=== PATIENT | female | born 1985 | race African-American/Black ===

== ENCOUNTER 2018-01-06 08:28 | Emergency (ER) | payer OTHER ==
[2018-01-06] MEDS ORDERED: NAPROXEN 250 MG TABLET PO ×2 (09:07)
[2018-01-06 09:14] LABS: URINE HCG POC HCG POSITIVE (Negative)
[2018-01-06] MEDS: IV NORMAL SALINE 1000ML BAG 1,000 ML IV ×2 (09:17)
[2018-01-06 09:24] LABS: BILIRUBIN,URINE NEGATIVE (NEG); CLARITY,URINE CLOUDY; COLOR,URINE YELLOW; GLUCOSE,URINE NEGATIVE (NEG); NITRITE,URINE NEGATIVE (NEG); PROTEIN,URINE NEGATIVE (NEG-TRACE)
[2018-01-06 09:26] LABS: ADD MAN DIFF? NO
[2018-01-06] MEDS: ACETAMINOPHEN 325 MG TABLET. PO ×2 (09:30)
[2018-01-06] MEDS: 0.9 % SODIUM CHLORIDE 10 ML DISP.SYRIN. IV ×2 (09:31)
[2018-01-06 09:35] LABS: BASO % 0 % (0-3); EOS % 1 % (0-3); HEMATOCRIT 42.3 % (36.0-47.0); HEMOGLOBIN 14.2 g/dL (12.0-15.5); LYMPH # 1.4 x10^3/uL (1.0-4.8); LYMPH % 33 % (24-48); MEAN CORPUSCULAR HEMOGLOBIN 33 pg (25-35); MEAN CORPUSCULAR HGB CONC 34 g/dL (31-37); MEAN CORPUSCULAR VOLUME 97 fL (79-100); MONO # 0.5 x10^3/uL (0.0-1.1); MONO % 12 % (0-9); NEUT # 2.4 x10^3uL (1.8-7.7); NEUT % 54 % (31-73); PLATELET COUNT 249 x10^3/uL (140-400); RED BLOOD COUNT 4.38 x10^6/uL (3.50-5.40); RED CELL DISTRIBUTION WIDTH 13.7 % (11.5-14.5); WHITE BLOOD COUNT 4.4 x10^3/uL (4.0-11.0)
[2018-01-06 09:40] LABS: BACTERIA,URINE FEW /HPF (0-FEW); RBC,URINE 0 /HPF (0-2)
[2018-01-06 09:41] LABS: AMORPHOUS SEDIMENT,UR PRESENT /HPF; SQUAMOUS EPITHELIAL CELL,UR MOD /LPF
[2018-01-06 09:48] LABS: ANION GAP 9 (6-14); BLOOD UREA NITROGEN 14 mg/dL (7-20); CALCIUM 9.6 mg/dL (8.5-10.1); CARBON DIOXIDE 27 mmol/L (21-32); CHLORIDE 103 mmol/L (98-107); CREATININE 0.6 mg/dL (0.6-1.0); GFR 138.5; GLUCOSE 102 mg/dL (70-99); POTASSIUM 3.8 mmol/L (3.5-5.1); SODIUM 139 mmol/L (136-145)
[2018-01-06 09:56] LABS: ALBUMIN 3.4 g/dL (3.4-5.0); ALK PHOS 55 U/L (46-116); ALT (SGPT) 12 U/L (14-59); AST (SGOT) 11 U/L (15-37); CREATINE KINASE 44 U/L (26-192); DIRECT BILIRUBIN 0.1 mg/dL (0.0-0.2); TOTAL BILIRUBIN 0.2 mg/dL (0.2-1.0); TOTAL PROTEIN 7.1 g/dL (6.4-8.2)
[2018-01-06] MEDS: cefTRIAXone IM 250 MG VIAL IM ×2 (10:19)
[2018-01-06] MEDS: AZITHROMYCIN 250 MG TABLET. PO ×2 (10:19)
[2018-01-07 20:12] LABS: CHLAMYDIA PROBE Positive (Negative); GC PROBE Negative (Negative)
== END 2018-01-06 11:17 | disposition home or self-care (01) ==
LOC: ER 08:28
DX: O20.0 Threatened abortion (principal); O23.41 Unspecified infection of urinary tract in pregnancy, first trimester; O23.511 Infections of cervix in pregnancy, first trimester; F14.10 Cocaine abuse, uncomplicated; F16.10 Hallucinogen abuse, uncomplicated; Z3A.01 Less than 8 weeks gestation of pregnancy; Z88.5 Allergy status to narcotic agent
CPT/HCPCS: 36415; 36430; 76801; 80048; 80076; 81001; 81025; 82550; 84702; 85025; 86900; 86901; 87086; 87491; 87591; 93971; 96372; 99285-25; J0696; Q0111; Q0144